=== PATIENT | female | born 1995 | race Caucasian/White ===

== ENCOUNTER 2018-03-29 19:07 | Emergency (ER) | END 2018-03-29 20:55 | disposition home or self-care (01) ==

== ENCOUNTER 2018-06-01 10:38 | Emergency (ER) | END 2018-06-01 13:49 | disposition home or self-care (01) ==

== ENCOUNTER 2018-06-21 09:30 | Emergency (ER) | END 2018-06-21 13:25 | disposition home or self-care (01) ==

== ENCOUNTER 2019-05-12 10:01 | Emergency (ER) | payer OTHER ==
[~2019-05-12] VITALS: Ht 157.5 cm; Wt 57.2 kg
[~2019-05-12 10:01] MED LIST: AUG875 PO; CIPR500T4 PO; FAMO-96 PO; IBUP-1542 PO; IBUP-1561 PO; NITR-58 PO; ONDA4TAB8 PO
[2019-05-12 10:03] VITALS: BP 112/75; PULSE 93; RESP 18; Ht 157.5 cm; Wt 57.2 kg
[2019-05-12] MEDS ORDERED: LIDOCAINE/MYLANTA 40 ML BTL PO STA (10:31)
[2019-05-12] MEDS ORDERED: ONDANSETRON (ODT) 4 MG TAB ODT STA (10:31)
--- NOTE | 2019-05-12 11:55 | ERD ---
ER Documentation Chief Complaint Chief Complaint PT with AP and nausea X 1 week, worst after meals. HPI Patient is a 23-year-old female, past medical history of H. pylori, presents to the ER for concerns of right upper quadrant abdominal pain and nausea for the last week. Patient states the pain is worse after eating. Patient denies fevers or chills. Patient denies any vomiting. Patient denies any chest pain or shortness of breath. Patient denies any changes in stool. Patient is to patient he does have dysuria. No recent travel. No sick contacts. ROS All systems reviewed and are negative except as per history of present illness. Medications Home Meds Active Scripts Famotidine* (Pepcid*) 20 Mg Tablet, 20 MG PO BID for 30 Days, TAB Prov:MICHELLE MONREAL PA-C 05/12/19 Nitrofurantoin Monohyd Macrocr* (Macrobid*) 100 Mg Capsr, 100 MG PO BID for 5 Days, CAP Prov:MICHELLE MONREAL PA-C 05/12/19 Ibuprofen* (Motrin*) 400 Mg Tab, 400 MG PO Q6, #30 TAB Prov:UNA BETHC 06/21/18 Ibuprofen* (Motrin*) 600 Mg Tab, 600 MG PO Q6, #30 TAB Prov:RODRIGO HAIR 06/01/18 Ondansetron Hcl* (Zofran*) 4 Mg Tablet, 4 MG PO Q6H for NAUSEA AND/OR VOMITING, #30 TAB Prov:RODRIGO HAIR 06/01/18 Ciprofloxacin Hcl* (Ciprofloxacin Hcl*) 500 Mg Tablet, 500 MG PO BID for 7 Days, TAB Prov:RODRIGO HAIR 06/01/18 Ibuprofen* (Motrin*) 400 Mg Tab, 400 MG PO Q6, #30 TAB Prov:BJ HARVEYC 03/29/18 Ibuprofen* (Motrin*) 400 Mg Tab, 400 MG PO Q6, #14 TAB Prov:CANDI VIVAS PA-C 11/07/15 Amoxicillin-Clavulanate K* (Augmentin*) 875 Mg Tab, 875 MG PO BID for 7 Days, TAB Prov:CANDI VIVAS PA-C 11/07/15 Allergies Allergies: Coded Allergies: No Known Drug Allergies (Verified Allergy, Unknown, 06/21/18) PMhx/Soc Medical and Surgical Hx: pt denies Medical Hx Anesthesia Reaction: No Hx Neurological Disorder: No Hx Respiratory Disorders: No Hx Cardiac Disorders: No Hx Psychiatric Problems: No Hx Miscellaneous Medical Probl: No Hx Alcohol Use: No Hx Substance Use: No Hx Tobacco Use: No Smoking Status: Never smoker FmHx Family History: No diabetes Physical Exam Vitals Vital Signs Date Temp Pulse Resp B/P (MAP) Pulse Ox O2 O2 Flow FiO2 Time Delivery Rate 05/12/19 98.5 93 18 112/75 99 10:03 (87) Physical Exam GENERAL: Well-developed, well-nourished female. Appears in no acute distress. HEAD: Normocephalic, atraumatic. EYES: Pupils are equally reactive bilaterally. EOMs grossly intact. No conjunctival erythema. ENT: Moist mucous membranes. No uvula deviation. No kissing tonsils. NECK: Supple. No meningismus. Normal range of motion of the neck. LUNG: Clear to auscultation bilaterally. No rhonchi, wheezing, rales or coarse breath sounds. HEART: Regular rate and rhythm. No murmurs, rubs or gallops. ABDOMEN: soft nondistended. Tender to palpation in the epigastric and right upper quadrant.. Positive bowel sounds in all four quadrants. No rebound tenderness, no guarding. (-) McBurney's point tenderness. No CVA tenderness. EXTREMITIES: Equal pulses bilaterally. No peripheral clubbing, cyanosis or edema. No unilateral leg swelling. NEUROLOGIC: Alert and oriented. Moving all four extremities without any difficulty. Normal speech. Steady gait. SKIN: Normal color. Warm and dry. No rashes or lesions. Result Diagram: 05/12/19 1037 05/12/19 1037 Results 24 hrs Laboratory Tests Test 05/12/19 10:37 05/12/19 10:41 White Blood Count 5.9 10^3/ul Red Blood Count 4.99 10^6/ul Hemoglobin 13.2 g/dl Hematocrit 41.8 % Mean Corpuscular Volume 83.8 fl Mean Corpuscular Hemoglobin 26.5 pg Mean Corpuscular Hemoglobin Concent 31.6 g/dl Red Cell Distribution Width 12.9 % Platelet Count 329 10^3/UL Mean Platelet Volume 11.5 fl Immature Granulocytes % 0.200 % Neutrophils % 48.2 % Lymphocytes % 37.7 % Monocytes % 9.7 % Eosinophils % 3.9 % Basophils % 0.3 % Nucleated Red Blood Cells % 0.0 /100WBC Immature Granulocytes # 0.010 10^3/ul Neutrophils # 2.8 10^3/ul Lymphocytes # 2.2 10^3/ul Monocytes # 0.6 10^3/ul Eosinophils # 0.2 10^3/ul Basophils # 0.0 10^3/ul Nucleated Red Blood Cells # 0.0 10^3/ul Urine Color YELLOW Urine Clarity SLIGHTLY CLOUDY Urine pH 9.0 Urine Specific [place] 1.014 Urine Ketones NEGATIVE mg/dL Urine Nitrite NEGATIVE mg/dL Urine Bilirubin NEGATIVE mg/dL Urine Urobilinogen NEGATIVE mg/dL Urine Leukocyte Esterase 2+ Andrea/ul Urine Microscopic RBC 3 /HPF Urine Microscopic WBC 2 /HPF Urine Squamous Epithelial Cells FEW /HPF Urine Hemoglobin NEGATIVE mg/dL Urine Glucose NEGATIVE mg/dL Urine Total Protein NEGATIVE mg/dl Sodium Level 142 mmol/L Potassium Level 4.1 mmol/L Chloride Level 104 mmol/L Carbon Dioxide Level 29 mmol/L Anion Gap 9 Blood Urea Nitrogen 9 mg/dl Creatinine 0.74 mg/dl Est Glomerular Filtrat Rate mL/min > 60 mL/min Glucose Level 103 mg/dl Calcium Level 9.9 mg/dl Total Bilirubin 0.6 mg/dl Direct Bilirubin 0.00 mg/dl Indirect Bilirubin 0.6 mg/dl Aspartate Amino Transf (AST/SGOT) 25 IU/L Alanine Aminotransferase (ALT/SGPT) 23 IU/L Alkaline Phosphatase 86 IU/L Total Protein 8.6 g/dl Albumin 4.4 g/dl Globulin 4.20 g/dl Albumin/Globulin Ratio 1.04 Lipase 181 U/L POC Beta HCG, Qualitative NEGATIVE Current Medications Medications Dose Sig/Jonn Start Time Status Last (Trade) Ordered Route PRN Stop Time Admin Dose Reason Admin 40 ml ONCE STAT 05/12/19 DC 05/12/19 Miscellaneous PO 10:31 10:38 Medication 05/12/19 10:32 (Gi Cocktail (2)) Ondansetron 4 mg ONCE STAT 05/12/19 DC 05/12/19 HCl (Zofran ODT 10:31 10:38 Odt) 05/12/19 10:32 Procedures/MDM ED COURSE: The patient was stable throughout ED course. I kept the patient and/or family informed of laboratory and diagnostic imaging results throughout the ED course. DIAGNOSTIC IMAGING: Read by radiologist. nt: MENDOZA BEDOYA : 1995 Age: 23 Sex: F MR #: [id number] DOS: 05/12/19 1031 Ordering MD: MICHELLE MONREAL PA-C Location: [facility] Room/Bed: PROCEDURE: Abdominal ultrasound CLINICAL INDICATION: Abdominal pain. COMPARISON: US ABDOMEN 06/01/2018 TECHNIQUE: Multiple transverse and longitudinal schaefer-scale images of the abdomen were obtained, supplemented with color, power, and spectral Doppler imaging when appropriate. FINDINGS: Liver Length: 15.24 cm. Parenchyma: Normal echogenicity. No suspicious mass or cyst. Hepatic veins: Appropriate direction of normal triphasic flow. Portal vein: Patent with normal hepatopetal flow. Biliary tree Gallbladder: No distension. No wall thickening. No pericholecystic fluid. No sludge or stones. Intrahepatic bile duct: Not dilated. Common bile duct: 1.1 mm. Pancreas: Partially obscured by bowel gas Right kidney Length: 9.0 cm. Parenchyma: No stone or hydronephrosis. Free fluid: None. Additional comment: None. IMPRESSION: 1. Limited evaluation of the pancreas. Examination is otherwise negative. RPTAT: HRSR Physician Eden Date Time Electronically viewed and signed by Physician Eden on 05/12/2019 11:08 RR/ PROCEDURES: None. MEDICATIONS GIVEN: GI cocktail, Zofran MEDICAL DECISION MAKING: This is a 23-year-old female, who presents to the ER for concerns of right upper quadrant pain for the last week.. Vital signs were reviewed. Patient is afebrile. IV line was established and blood work was obtained. CBC showed no evidence of systemic infection or severe anemia. CMP showed no evidence of electrolyte abnormalities, severe acidosis, alkalosis, renal failure, or liver disease. Lipase showed no evidence of acute pancreatitis. UA did show 2+ leukocyte esterase. Low suspicion for UTI, pyelonephritis or nephrolithiasis. Urine test was negative. Gallbladder ultrasound was unremarkable. Patient was given a GI cocktail and Zofran. Patient reported improvement in pain prior to discharge. Patient does have a history of HIV and she was advised that she should follow-up with her primary care physician for H. pylori testing again. Unable to rule out PUD at this time. At this time with the patient presentation is most consistent with abdominal pain and UTI. Differential diagnoses include but was not limited to acute coronary syndrome, AAA, mesenteric ischemia, lower lobe pneumonia, DKA, bowel perforation, cholecystitis, choledocholithiasis, ascending cholangitis, hepatic abscess, pancreatitis, splenic rupture, diverticulitis, UTI, pyelonephritis, nephrolithiasis, appendicitis, constipation, , ectopic , PID, ovarian torsion or tubo-ovarian abscess. Patient was nontoxic, [id number] prior to discharge. PRESCRIPTIONS: Pepcid, Macrobid DISCHARGE: At this time, patient is stable for discharge and outpatient management. I have instructed the patient to follow-up with his/her primary care physician in 1-2 days. I have instructed the patient to promptly return to the ER at any time for any new or worsening symptoms including increased pain, nausea, vomiting, diarrhea, fever, weakness or LOC. The patient and/or family expressed understanding of and agreement with this plan. All questions were answered. Home care instructions were provided. Disclaimer: Inadvertent spelling and grammatical errors are likely due to EHR/dictation software use and do not reflect on the overall quality of patient care. Also, please note that the electronic time recorded on this note does not necessarily reflect the actual time of the patient encounter. Departure Diagnosis: Primary Impression: UTI (urinary tract infection) Urinary tract infection type: site unspecified Hematuria presence: without hematuria Qualified Codes: N39.0 - Urinary tract infection, site not specified Additional Impression: Abdominal pain Abdominal location: unspecified location Qualified Codes: R10.9 - Unspecified abdominal pain Condition: Fair Patient Instructions: Abdominal Pain, Understanding Urinary Tract Infections (UTIs) Referrals: COMM[facility] YOU HAVE RECEIVED A MEDICAL SCREENING EXAM AND THE RESULTS INDICATE THAT YOU DO NOT HAVE A CONDITION THAT REQUIRES URGENT TREATMENT IN THE EMERGENCY DEPARTMENT. FURTHER EVALUATION AND TREATMENT OF YOUR CONDITION CAN WAIT UNTIL YOU ARE SEEN IN YOUR DOCTORS OFFICE WITHIN THE NEXT 1-2 DAYS. IT IS YOUR RESPONSIBILITY TO MAKE AN APPOINTMENT FOR FOLOW-UP CARE. IF YOU HAVE A PRIMARY DOCTOR --you should call your primary doctor and schedule an appointment IF YOU DO NOT HAVE A PRIMARY DOCTOR YOU CAN CALL OUR PHYSICIAN REFERRAL HOTLINE AT IF YOU CAN NOT AFFORD TO SEE A PHYSICIAN YOU CAN CHOSE FROM THE FOLLOWING [facility] [address] [facility] [address] [facility] [address] [facility] [address] [facility] [address] [facility]. [facility] [address] [facility]. [facility] YOU HAVE RECEIVED A MEDICAL SCREENING EXAM AND THE RESULTS INDICATE THAT YOU DO NOT HAVE A CONDITION THAT REQUIRES URGENT TREATMENT IN THE EMERGENCY DEPARTMENT. FURTHER EVALUATION AND TREATMENT OF YOUR CONDITION CAN WAIT UNTIL YOU ARE SEEN IN YOUR DOCTORS OFFICE WITHIN THE NEXT 1-2 DAYS. IT IS YOUR RESPONSIBILITY TO MAKE AN APPOINTMENT FOR FOLOW-UP CARE. IF YOU HAVE A PRIMARY DOCTOR --you should call your primary doctor and schedule and appointment IF YOU DO NOT HAVE A PRIMARY DOCTOR YOU CAN CALL OUR PHYSICIAN REFERRAL HOTLINE AT . IF YOU CAN NOT AFFORD TO SEE A PHYSICIAN YOU CAN CHOSE FROM THE FOLLOWING [facility]: [facility] [address] [place] [address] [facility] [address] [place] [address] [facility] [address] [place] [address] Additional Instructions: Low up with your primary care doctor for H. pylori testing. Call your primary care doctor TOMORROW for an appointment during the next 1-2 days.See the doctor sooner or return here if your condition worsens before your appointment time. MICHELLE MONREAL PA-C May 12, 2019 11:55
== END 2019-05-12 11:58 | disposition home or self-care (01) ==
LOC: FTE 10:01
DX: N39.0 Urinary tract infection, site not specified (principal)
CPT/HCPCS: 36415; 76705; 80053; 81001; 81025; 83690; 85025; Z7502; Z7610

== ENCOUNTER 2019-06-15 18:50 | Emergency (ER) | payer OTHER ==
[~2019-06-15] VITALS: Ht 144.8 cm; Wt 57.1 kg
[~2019-06-15 18:50] MED LIST changes: +ACET500C5 PO
[2019-06-15 19:12] VITALS: BP 120/73; PULSE 81; RESP 16; Ht 144.8 cm; Wt 57.1 kg
== END 2019-06-15 20:18 | disposition home or self-care (01) ==
LOC: FTE 18:50
DX: R10.13 Epigastric pain (principal)
CPT/HCPCS: 81025; Z7502; 99283